=== PATIENT | male | born 1970 | race Caucasian/White ===

== ENCOUNTER 2019-09-18 19:24 | Emergency (ER) | payer MEDICAID ==
[~2019-09-18] VITALS: Ht 180.3 cm; Wt 96.2 kg
[2019-09-18 19:57] VITALS: BP 131/83; Ht 180.3 cm; Wt 96.2 kg
== END 2019-09-18 21:55 | disposition home or self-care (01) ==
LOC: ED 19:24
DX: B02.9 Zoster without complications (principal)